=== PATIENT | male | born 1980 | race African-American/Black ===

== ENCOUNTER 2018-11-15 09:49 | Emergency (ER) | payer MEDICAID, OTHER ==
[~2018-11-15] VITALS: Ht 175.3 cm; Wt 86.3 kg
[~2018-11-15 09:49] MED LIST: ERYT1OIN6 BOTH EYES
[2018-11-15 09:58] VITALS: Ht 175.3 cm; Wt 86.3 kg
[2018-11-15] MEDS ORDERED: SOD CHLORIDE 0.9% 1,000 ML IV STA (09:59)
[2018-11-15] MEDS ORDERED: TETRACAINE 0.5% 4 ML OPH BOTH EYES SCH (10:30)
[2018-11-15 13:47] VITALS: BP 128/85; PULSE 85; RESP 18
== END 2018-11-15 13:50 | disposition home or self-care (01) ==
LOC: E/R 09:49
DX: T65.893A Toxic effect of other specified substances, assault, initial encounter (principal); H10.213 Acute toxic conjunctivitis, bilateral
CPT/HCPCS: J7030; Z7502